=== PATIENT | male | born 2000 | race Hispanic/Latino ===

== ENCOUNTER 2019-02-20 18:32 | Emergency (ER) | payer OTHER ==
--- NOTE | 2019-02-20 19:08 | RAD REPORT ---
EXAM DESCRIPTION: RAD - Hand Right 3 View - 02/20/2019 6:59 pm CLINICAL HISTORY: PAIN COMPARISON: No comparisons FINDINGS: Soft tissue swelling affects the first finger. No acute fracture or dislocation seen.
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
--- NOTE | 2019-02-20 19:22 | EDPHYS ---
Physician Documentation [facility] Name: Jerardo Tate Age: 18 yrs Sex: Male : 2000 Arrival Date: 02/20/2019 Time: 18:35 Bed 20 Private MD: ED Physician Pranav Sánchez HPI: 02/20 18:40 This 18 yrs old Male presents to ER via Ambulatory with complaints of cinthya Laceration To Head. 18:40 The patient has a laceration related to: falling from a standing position. The cinthya laceration(s) is(are) located on the left side of head. Onset: The symptoms/episode began/occurred just prior to arrival. Associated signs and symptoms: The patient has no apparent associated signs or symptoms. The patient has not experienced similar symptoms in the past. Historical: - Allergies: 18:38 No Known Allergies; aj1 - Home Meds: 18:38 Prozac Oral [Active]; aj1 - PMHx: 18:38 Asthma; aj1 - PSHx: 18:38 None; aj1 - Immunization history:: Flu vaccine is up to date. - Social history:: Smoking status: Patient/guardian denies using tobacco. - Ebola Screening: : Patient denies travel to an Ebola-affected area in the 21 days before illness onset. ROS: 18:41 Constitutional: Negative for fever, chills, and weight loss, Eyes: Negative for injury, cinthya pain, redness, and discharge, ENT: Negative for injury, pain, and discharge, Neck: Negative for injury, pain, and swelling, Cardiovascular: Negative for chest pain, palpitations, and edema, Respiratory: Negative for shortness of breath, cough, wheezing, and pleuritic chest pain, Abdomen/GI: Negative for abdominal pain, nausea, vomiting, diarrhea, and constipation, Back: Negative for injury and pain, : Negative for injury, bleeding, discharge, and swelling, Skin: Negative for injury, rash, and discoloration, Neuro: Negative for headache, weakness, numbness, tingling, and seizure, Psych: Negative for depression, anxiety, suicide ideation, homicidal ideation, and hallucinations, Allergy/Immunology: Negative for hives, rash, and allergies, Endocrine: Negative for neck swelling, polydipsia, polyuria, polyphagia, and marked weight changes, Hematologic/Lymphatic: Negative for swollen nodes, abnormal bleeding, and unusual bruising. 18:41 MS/extremity: Positive for decreased range of motion, pain, of the lateral aspect of right hand. Exam: 18:41 Constitutional: This is a well developed, well nourished patient who is awake, alert, cinthya and in no acute distress. Eyes: Pupils equal round and reactive to light, extra-ocular motions intact. Lids and lashes normal. Conjunctiva and sclera are non-icteric and not injected. Cornea within normal limits. Periorbital areas with no swelling, redness, or edema. ENT: Nares patent. No nasal discharge, no septal abnormalities noted. Tympanic membranes are normal and external auditory canals are clear. Oropharynx with no redness, swelling, or masses, exudates, or evidence of obstruction, uvula midline. Mucous membranes moist. Neck: Trachea midline, no thyromegaly or masses palpated, and no cervical lymphadenopathy. Supple, full range of motion without nuchal rigidity, or vertebral point tenderness. No Meningismus. Chest/axilla: Normal chest wall appearance and motion. Nontender with no deformity. No lesions are appreciated. Cardiovascular: Regular rate and rhythm with a normal S1 and S2. No gallops, murmurs, or rubs. Normal PMI, no JVD. No pulse deficits. Respiratory: Lungs have equal breath sounds bilaterally, clear to auscultation and percussion. No rales, rhonchi or wheezes noted. No increased work of breathing, no retractions or nasal flaring. Abdomen/GI: Soft, non-tender, with normal bowel sounds. No distension or tympany. No guarding or rebound. No evidence of tenderness throughout. Back: No spinal tenderness. No costovertebral tenderness. Full range of motion. Skin: Warm, dry with normal turgor. Normal color with no rashes, no lesions, and no evidence of cellulitis. Neuro: Awake and alert, GCS 15, oriented to person, place, time, and situation. Cranial nerves II-XII grossly intact. Motor strength 5/5 in all extremities. Sensory grossly intact. Cerebellar exam normal. Normal gait. Psych: Awake, alert, with orientation to person, place and time. Behavior, mood, and affect are within normal limits. 18:41 Head/face: Noted is a laceration(s), that is deep, 2.5 cm(s). 18:41 Musculoskeletal/extremity: Extremities: noted in the lateral aspect of right hand: decreased ROM, pain. 18:41 Musculoskeletal/extremity: ROM: no acute changes, Circulation is intact in all extremities. Sensation intact. Compartment Syndrome exam of affected extremity: is normal. Vital Signs: 18:38 BP 141 / 88; Pulse 82; Resp 18; Temp 98.5; Pulse Ox 99% on R/A; Weight 68.95 kg (R); aj1 Height 5 ft. 9 in. (175.26 cm) (R); Pain 9/10; 19:30 BP 125 / 74; Pulse 86; Resp 18; Pulse Ox 100% on R/A; wh 18:38 Body Mass Index 22.45 (68.95 kg, 175.26 cm) aj1 Laceration: 18:44 Wound Repair of 2.5cm ( 1.0in ) subcutaneous laceration to left side of head. Linear cinthya shaped.. Distal neuro/vascular/tendon intact. Anesthesia: none with 0 mls of 1% lidocaine. Wound prep: Simple cleansing by me. Skin closed with 4 Ramírez using staple gun. Dressed with pressure dressing. Patient tolerated well. MDM: 18:39 Patient medically screened. [facility] 18:44 Data reviewed: vital signs, nurses notes, radiologic studies, plain films. [facility] 02/20 18:37 Order name: XRAY Hand RIGHT 3 View rb1 02/20 18:40 Order name: Wound dressing; Complete Time: 19:26 [facility] Administered Medications: No medications were administered Disposition: 02/20/19 19:20 Discharged to Home. Impression: Laceration without foreign body of other part of head - scalp, Contusion of left thumb without damage to nail - sprain. - Condition is Stable. - Discharge Instructions: Head Injury, Adult, Facial Laceration, Facial Laceration, [id number], Head Injury, Adult, [id number]. - Medication Reconciliation Form, Thank You Letter, Antibiotic Education, Prescription Opioid Use form. - Follow up: Private Physician; When: 2 - 3 days; Reason: Recheck today's complaints, Continuance of care, Re-evaluation by your physician. - Problem is new. - Symptoms have improved. Signatures: Dispatcher [employer] EDMichelle Woodruff RN RN aj1 Pranav Sánchez MD MD cha Habalo, Winsy wh Corrections: (The following items were deleted from the chart) 19:38 19:20 02/20/2019 19:20 Discharged to Home. Impression: Laceration without foreign body wh of other part of head - scalp; Contusion of left thumb without damage to nail - sprain. Condition is Stable. Discharge Instructions: Head Injury, Adult, Facial Laceration, Facial Laceration, [id number], Head Injury, Adult, [id number]. Forms are Medication Reconciliation Form, Thank You Letter, Antibiotic Education, Prescription Opioid Use. Follow up: Private Physician; When: 2 - 3 days; Reason: Recheck today's complaints, Continuance of care, Re-evaluation by your physician. Problem is new. Symptoms have improved. cinthya
[2019-02-20 21:34] VITALS: TEMP 98.5
[2019-02-20 21:36] VITALS: BP 125/74; O2SAT 100
== END 2019-02-20 19:38 | disposition home or self-care (01) ==
LOC: ER 18:32
PROC: 0JQ00ZZ Repair Scalp Subcutaneous Tissue and Fascia, Open Approach (ICD-10-PCS; principal; 2019-02-20)
DX: S01.01XA Laceration without foreign body of scalp, initial encounter (principal); S60.012A Contusion of left thumb without damage to nail, initial encounter; Y04.2XXA Assault by strike against or bumped into by another person, initial encounter; Y93.89 Activity, other specified; Y92.9 Unspecified place or not applicable
CPT/HCPCS: 99283